=== PATIENT | female | born 1970 ===

== ENCOUNTER 2017-05-31 09:55 | Emergency (ER) | payer BC ==
--- NOTE | 2017-05-31 11:09 | UC ---
Ear Complaint HPI - HPI Summary HPI Summary: 46 y/o female presents to the urgent care c/o of RT ear pain for the past 2 days. Pt reports her pain is 7/10. She also states she has difficulty moving her head to the Rt side due to pain. Patient denies fever, SOB, cough, sore throat, chest pain, neck pain. She has not taken anything to alleviate symptoms and is not allergic to anything. - History of Current Complaint Chief Complaint: UCEar Stated Complaint: EAR COMPLAINT Time Seen by Provider: 05/31/17 11:07 Hx Obtained From: Patient Hx Last Menstrual Period: 05/06/17 ?: No Onset/Duration: Gradual Onset, Lasting Days, Still Present Severity Initially: Mild Severity Currently: Moderate Pain Intensity: 7 Pain Scale Used: 0-10 Numeric Alleviating Factors: Nothing Associated Signs/Symptoms: Positive: Swelling @ - lymph node - Allergies/Home Medications Allergies/Adverse Reactions: Allergies Allergy/AdvReac Type Severity Reaction Status Date / Time No Known Allergies Allergy Verified 05/31/17 10:11 PMH/Surg Hx/FS Hx/Imm Hx Previously Healthy: Yes - Surgical History Surgical History: Yes Surgery Procedure, Year, and Place: - Family History Known Family History: Positive: None - Social History Occupation: Employed Full-time Lives: With Family Alcohol Use: None Substance Use Type: None Smoking Status (MU): Never Smoked Tobacco Review of Systems Constitutional: Negative Skin: Negative Eyes: Negative ENT: Ear Ache - Rt ear pain Respiratory: Negative Cardiovascular: Negative Gastrointestinal: Negative Genitourinary: Negative Motor: Negative Neurovascular: Negative Musculoskeletal: Negative Neurological: Negative Psychological: Negative All Other Systems Reviewed And Are Negative: Yes Physical Exam Triage Information Reviewed: Yes Appearance: Well-Appearing, No Pain Distress, Well-Nourished, Obese Vital Signs: Initial Vital Signs Temp 99.8 F 05/31/17 10:08 Pulse 100 05/31/17 10:08 Resp 18 05/31/17 10:08 BP 133/74 05/31/17 10:08 Pulse Ox 100 05/31/17 10:08 Vital Signs Reviewed: Yes Eye Exam: Normal - PERRLA, EOMI, Fundi grossly normal ENT: Positive: Normal ENT inspection, Hearing grossly normal, Pharynx normal, TMs normal - Left TM and ear canal WNL. Left TM with erythema and no light reflex, mild pus observed. Positve left cervical lympnode swollen and tender to palpation. LF ear canal wnl. Negative: Nasal congestion, Nasal drainage Dental Exam: Normal Neck exam: Normal Neck: Positive: Supple Respiratory Exam: Normal Respiratory: Positive: Chest non-tender, Lungs clear, Normal breath sounds Cardiovascular Exam: Normal Cardiovascular: Positive: RRR, No Murmur, Pulses Normal Abdominal Exam: Normal Abdomen Description: Positive: Nontender, No Organomegaly, Soft. Negative: CVA Tenderness (R), CVA Tenderness (L) Bowel Sounds: Positive: Present Musculoskeletal Exam: Normal Neurological Exam: Normal Psychological Exam: Normal Skin Exam: Normal Ear Complaint Course/Dx - Course Course Of Treatment: 46 y/o female presents to the urgent care c/o of RT ear pain for the past 2 days. Pt reports her pain is 7/10. Hx obtained. PE abnormal findings: Left TM and ear canal WNL. Left TM with erythema and no light reflex, mild pus observed. Positve left cervical lympnode swollen and tender to palpation. LF ear canal wnl. Pt Rx Amoxicillin 875mg PO BID x 10 days for Left Otitis Media, and Ibuprofen 800mg prn after meals to allevaite symptoms. Pt advised if symptos worsen despite the antibiotic to returne to the urgent care or f/u with her PCP. Pt understood and agreed. - Differential Dx/Diagnosis Differential Diagnosis/HQI/PQRI: Otitis Externa, Otitis Media, Perforated TM, Pharyngitis Provider Diagnoses: Left acute otitis media Discharge - Discharge Plan Condition: Stable Disposition: HOME Prescriptions: Amoxicillin (*) [Amoxicillin 875 MG (*)] 875 mg PO BID #20 tab Ibuprofen TAB* [Motrin TAB* 800 MG] 800 mg PO Q6H #20 tab Patient Education Materials: Otitis Media (ED) Referrals: [facility] [Outside] - 7 Days No Primary Care Phys,NOPCP [Primary Care Provider] - Additional Instructions: Please take medications as instructed and finish the full course of treatment to avoid recurrent infection, take the ibuprofen after meals. If you do not improve or if symptoms worsen after the course of antibiotics, you should either follow up with your PCP or return to the urgent care for further evaluation and treatment.
== END 2017-05-31 12:24 | disposition home or self-care (01) ==
LOC: UCEAST 09:55
DX: H66.92 Otitis media, unspecified, left ear (principal)
CPT/HCPCS: 99202; G0463